=== PATIENT | female | born 2000 | race Caucasian/White ===

== ENCOUNTER 2019-07-29 10:00 | Emergency (ER) | payer BC ==
[2019-07-29] MEDS ORDERED: diPHENhydraMINE PO* 50 MG PO ONE (10:57)
--- NOTE | 2019-07-29 11:20 | ED ---
Allergic Reaction/Systemic - HPI Summary HPI Summary: This patient is a 18 year old F presenting to [facility] accompanied by sister with a chief complaint of reaction to medicine since 07/27/19 night. Symptoms aggravated by nothing. Symptoms alleviated by Benadryl. Patient reports she took Mucinex DM (has taken regular before never DM) yesterday for sinus infection and since then she started experiencing hallucinations, episodes of seeing weird colors and not understanding what people were saying, disorientations, jaw trembling, and shaky muscles. Patient reports she took her first pill before she slept 07/27/19 at night and the next morning she woke up and felt off so she took another Mucinex making the situation worse. Later that day she took another without eating anything that in the day and symptoms worsened to the point of having to clench her jaw and not being able to speak. Patient reports she had a sinus congestion, KEMP in center of face, and was warm all over. Patient also reports she took a Tylenol for a fever. - History of Current Complaint Chief Complaint: EDAllergicReaction Time Seen by Provider: 07/29/19 10:36 Hx Obtained From: Patient Onset/Duration: Started days ago, Still Present Timing: Intermittent Pain Intensity: 0 Pain Scale Used: 0-10 Numeric Aggravating Factor(s): Nothing Alleviating Factor(s): OTC Meds - Benadryl Associated Signs And Symptoms: Positive: Other: - experiencing hallucinations, episodes of seeing weird colors and not understanding what people were saying, disorientations, jaw trembling, soft legs, shaky muscles - Allergies/Home Medications Allergies/Adverse Reactions: Allergies Allergy/AdvReac Type Severity Reaction Status Date / Time No Known Allergies Allergy Verified 07/29/19 10:06 Home Medications: Home Medications NK [No Home Medications Reported] 07/29/19 [History Confirmed 07/29/19] PMH/Surg Hx/FS Hx/Imm Hx Endocrine/Hematology History: Denies: Hx Diabetes Cardiovascular History: Denies: Hx Hypertension Sensory History: Reports: Hx Contacts or Glasses Opthamlomology History: Reports: Hx Contacts or Glasses - Surgical History Surgery Procedure, Year, and Place: none Infectious Disease History: No Infectious Disease History: Denies: Traveled Outside the [place] in Last 30 Days - Family History Known Family History: Positive: Cardiac Disease, Diabetes - Social History Alcohol Use: Occasionally Hx Substance Use: No Substance Use Type: Reports: None Hx Tobacco Use: No Smoking Status (MU): Never Smoked Tobacco Review of Systems Constitutional: Other - warm all over Positive: Other - sinus congestion Positive: Other - soft legs, and shaky muscles Neurological: Other - hallucinations, episodes of seeing weird colors and not understanding what people were saying, disorientations, jaw trembling Positive: Headache - in center of face All Other Systems Reviewed And Are Negative: Yes Physical Exam - Summary Physical Exam Summary: Constitutional: Well-developed, Well-nourished, Alert. (-) Distressed Skin: Warm, Dry HENT: intermittent trembling of the jaw Eyes: Conjunctiva normal Neck: Musculoskeletal ROM normal neck. (-) JVD, (-) Stridor, (-) Nuchal rigidity Cardio: Rhythm regular, rate normal, Heart sounds normal; Intact distal pulses; Radial pulses are 2+ and symmetric. (-) Murmur Pulmonary/Chest wall: Effort normal. (-) Respiratory distress, (-) Wheezes, (-) Rales Abd: Soft, (-) tenderness, (-) Distension, (-) Guarding, (-) Rebound Musculoskeletal: (-) Edema Lymph: (-) Cervical adenopathy Neuro: Alert, Oriented x3 Psych: Mood and affect Normal Triage Information Reviewed: Yes Vital Signs On Initial Exam: Initial Vitals Temp Pulse Resp BP Pulse Ox 98.5 F 92 16 136/84 99 07/29/19 10:01 07/29/19 10:01 07/29/19 10:01 07/29/19 10:01 07/29/19 10:01 Vital Signs Reviewed: Yes Diagnostics - Vital Signs Vital Signs Temp Pulse Resp BP Pulse Ox 07/29/19 11:00 79 98 07/29/19 10:52 80 140/89 100 07/29/19 10:01 98.5 F 92 16 136/84 99 - Laboratory Lab Statement: Any lab studies that have been ordered have been reviewed, and results considered in the medical decision making process. - EKG 1201 Cardiac Rate: NL - 69 BPM Summary of EKG Findings: An EKG at 1201 reveals normal sinus rhythm at 69 BPM, nml axis, nml intervals. No STEMI. No acute changes. Re-Evaluation - Re-Evaluation First Eval Re-Evaluation Time: 11:50 Comment: Feels better, gets palpitations intermittently at home so dad requested eval, will check EKG. Allergic Reaction Course/Dx - Course Course Of Treatment: 18 y/o F p/w medication reaction to dextromethorphan. - PE w anxious appearing female, intermittent tremors otherwise unremarkable. - will give benadryl for comfort. - Diagnoses Provider Diagnoses: Allergic reaction Discharge ED - Sign-Out/Discharge Documenting (check all that apply): Patient Departure - discharge Patient Received Moderate/Deep Sedation with Procedure: No - Discharge Plan Condition: Stable Disposition: HOME Patient Education Materials: General Allergic Reaction (ED) Referrals: [facility] - Elia JEAN [Primary Care Provider] - 2 Days Additional Instructions: You were seen in the emergency department for reaction to medication. We advise you no longer take dextromethorphan. Please take Benadryl as needed for symptoms at home. If any studies were not completed at the time of discharge you will be called with the relevant results. Please follow up with your primary care doctor in next 2-3 days and return to emergency department for worsening or concerning symptoms. It was a pleasure taking care of you today. - Billing Disposition and Condition Condition: STABLE Disposition: Home - Attestation Statements Document Initiated by Scribe: Yes Documenting Scribe: Belgica Olea Provider For Whom Yodit is Documenting (Include Credential): Dr. Alyce Barajas MD Scribe Attestation: Belgica Latif, scribed for Dr. Alyce Barajas MD on 07/29/19 at 1327. Scribe Documentation Reviewed: Yes Provider Attestation: The documentation as recorded by the Belgica james accurately reflects the service I personally performed and the decisions made by me, Dr. Alyce Barajas MD Status of Scribe Document: Viewed
[2019-07-29 12:17] VITALS: BP 102/66
== END 2019-07-29 12:14 | disposition home or self-care (01) ==
LOC: ED 10:00
DX: T78.40XA Allergy, unspecified, initial encounter (principal); R44.3 Hallucinations, unspecified; R51 Headache; X58.XXXA Exposure to other specified factors, initial encounter
CPT/HCPCS: 93005; 99282; A9270-GY